=== PATIENT | male | born 1965 | race African-American/Black ===

== ENCOUNTER 2021-02-11 09:00 | Day surgery (SDC) | payer OTHER ==
[~2021-02-11] VITALS: Ht 175.3 cm; Wt 69.9 kg
[~2021-02-11 09:00] MED LIST: XALATAN 0.005%2.5 ML OU
[2021-02-11] MEDS ORDERED: TORADOL PO (11:39)
[2021-02-11 13:55] VITALS: BP 168/72
== END 2021-02-11 12:55 | DRG 352 ==
LOC: ORM 09:00
PROVIDERS: ATTEND Surgery
PROC: 0YU54JZ Supplement Right Inguinal Region with Synthetic Substitute, Percutaneous Endoscopic Approach (ICD-10-PCS; principal; 2021-02-11)
DX: K40.90 Unilateral inguinal hernia, without obstruction or gangrene, not specified as recurrent (principal)
CPT/HCPCS: C1781; J0131; J2710